=== PATIENT | female | born 1995 | race American Indian/Alaskan Native ===

== ENCOUNTER 2016-11-08 04:00 | Emergency (ER) | payer MEDICAID ==
[2016-11-08 04:30] LABS: Basophils % (Auto) 0.9 % (0.0-1.8); Eosinophils % (Auto) 1.5 % (0.0-4.3); Hematocrit 30.7 % (30.3-42.9); Hemoglobin 10.4 gm/dl (10.1-14.3); Mean Corpuscular HGB Conc 34 % (30-34); Mean Corpuscular Volume 76 fl (79-97); Platelet Count 321 K/mm3 (140-440); Red Blood Count 4.05 M/mm3 (3.65-5.03); Red Cell Distribution Width 15.9 % (13.2-15.2); White Blood Count 10.8 K/mm3 (4.5-11.0)
[2016-11-08 04:46] LABS: Urine Drugs of Abuse Note Disclamer
[2016-11-08 04:48] LABS: Alanine Aminotransferase 20 units/L (7-56); Albumin 3.9 g/dL (3.9-5); Alkaline Phosphatase 57 units/L (35-129); Anion Gap 18 mmol/L; BUN/Creatinine Ratio 13.33; Blood Urea Nitrogen 8 mg/dL (7-17); Carbon Dioxide 22 mmol/L (22-30); Chloride 100.8 mmol/L (98-107); Glucose 103 mg/dL (65-100); Mean Corpuscular Hemoglobin 26 pg (28-32); Sodium 137 mmol/L (137-145); Total Protein 7.7 g/dL (6.3-8.2)
[2016-11-08 04:58] LABS: Bacteria,Urine 1+ /HPF (Negative); Bilirubin,Urine NEG (Negative); Blood,Urine NEG (Negative); Ketones,Urine NEG (Negative); Leukocyte Esterase,Urine SM (Negative); Nitrite,Urine NEG (Negative); Protein,Urine <15 mg/dL mg/dL (Negative); Urobilinogen,Urine < 2.0 mg/dL (<2.0)
--- NOTE | 2016-11-08 07:17 | Emergency Department Report ---
ED General Adult HPI - General Chief complaint: Altered Mental Status Stated complaint: AMS Time Seen by Provider: 11/08/16 07:15 Source: patient Mode of arrival: Stretcher Limitations: No Limitations - History of Present Illness Initial comments: According to triage the patient states that she was found on a floor at her workplace. She works in a hot environment. She tells me that she fainted. She feels back to normal now and states he is ready for discharge. She states that she did not have any prodromal symptoms although she's had a "slight headache" over the last 24 hours which is now resolved. She denies any focal neurological symptoms. She has no history of seizure. She states that she recalls the ambulance ride over here. On my encounter she was resting comfortably and easily arousable. -: unknown Improves with: none Worsens with: none Associated Symptoms: denies other symptoms (except as above indicated) - Related Data Home Medications Medication Instructions Recorded Confirmed Last Taken No Known Home Medications [No 11/08/16 11/08/16 Unknown Reported Home Medications] Allergies Allergy/AdvReac Type Severity Reaction Status Date / Time No Known Allergies Allergy Unverified 11/08/16 04:11 ED Review of Systems ROS: Stated complaint: AMS Other details as noted in HPI Constitutional: denies: chills, fever Eyes: denies: eye pain, eye discharge, vision change ENT: denies: ear pain, throat pain Respiratory: denies: cough, shortness of breath, wheezing Cardiovascular: denies: chest pain, palpitations Endocrine: no symptoms reported Gastrointestinal: denies: abdominal pain, nausea, diarrhea Genitourinary: denies: urgency, dysuria, discharge Musculoskeletal: denies: back pain, joint swelling, arthralgia Skin: denies: rash, lesions Neurological: headache ("slight headache" which has resolved). denies: weakness , paresthesias Psychiatric: denies: anxiety, depression Hematological/Lymphatic: denies: easy bleeding, easy bruising ED Past Medical Hx - Past Medical History Previous Medical History?: No - Surgical History Past Surgical History?: Yes Additional Surgical History: c-sec - Social History Smoking Status: Never Smoker Substance Use Type: None - Medications Home Medications: Home Medications Medication Instructions Recorded Confirmed Last Taken Type No Known Home Medications [No 11/08/16 11/08/16 Unknown History Reported Home Medications] ED Physical Exam - General Limitations: No Limitations General appearance: alert, in no apparent distress - Head Head exam: Present: atraumatic, normocephalic - Eye Eye exam: Present: normal appearance, PERRL, EOMI. Absent: scleral icterus - ENT ENT exam: Present: mucous membranes moist - Neck Neck exam: Present: normal inspection. Absent: tenderness, meningismus - Respiratory Respiratory exam: Present: normal lung sounds bilaterally. Absent: respiratory distress - Cardiovascular Cardiovascular Exam: Present: regular rate, normal rhythm. Absent: systolic murmur, diastolic murmur, rubs, gallop - GI/Abdominal GI/Abdominal exam: Present: soft, normal bowel sounds. Absent: distended, tenderness, guarding, rebound, rigid - Extremities Exam Extremities exam: Present: normal inspection - Back Exam Back exam: Present: normal inspection - Neurological Exam Neurological exam: Present: alert, oriented X3, CN II-XII intact, normal gait, other (cerebellar testing was normal). Absent: motor sensory deficit - Psychiatric Psychiatric exam: Present: normal affect, normal mood - Skin Skin exam: Present: warm, dry, intact, normal color. Absent: rash ED Course Vital Signs 11/08/16 11/08/16 04:13 07:20 Temperature 99.1 F 98.3 F Pulse Rate 80 79 Respiratory 18 15 Rate Blood Pressure 124/72 Blood Pressure 106/58 [Left] O2 Sat by Pulse 100 100 Oximetry ED Medical Decision Making - Lab Data Result diagrams: 11/08/16 04:22 11/08/16 04:22 Laboratory Results - last 24 hr 11/08/16 11/08/16 11/08/16 04:22 04:22 04:30 WBC 10.8 RBC 4.05 Hgb 10.4 Hct 30.7 MCV 76 L MCH 26 L MCHC 34 RDW 15.9 H Plt Count 321 Lymph % (Auto) 23.5 Bertie % (Auto) 7.0 Eos % (Auto) 1.5 Baso % (Auto) 0.9 Lymph # 2.5 Bertie # 0.8 Eos # 0.2 Baso # 0.1 Seg Neutrophils % 67.1 Seg Neutrophils # 7.2 Sodium 137 Potassium 4.0 Chloride 100.8 Carbon Dioxide 22 Anion Gap 18 BUN 8 Creatinine 0.6 L Estimated GFR > 60 BUN/Creatinine Ratio 13.33 Glucose 103 H Calcium 9.0 Total Bilirubin 0.40 AST 24 ALT 20 Alkaline Phosphatase 57 Total Protein 7.7 Albumin 3.9 Albumin/Globulin Ratio 1.0 Urine Color Yellow Urine Turbidity Clear Urine pH 6.0 Ur Specific Sawyer 1.013 Urine Protein <15 mg/dl Urine Glucose (UA) Neg Urine Ketones Neg Urine Blood Neg Urine Nitrite Neg Urine Bilirubin Neg Urine Urobilinogen < 2.0 Ur Leukocyte Esterase Sm Urine WBC (Auto) 4.0 Urine RBC (Auto) 3.0 U Epithel Cells (Auto) 8.0 Urine Bacteria (Auto) 1+ Urine HCG, Qual Negative Urine Opiates Screen Urine Methadone Screen Ur Barbiturates Screen Ur Phencyclidine Scrn Ur Amphetamines Screen U Benzodiazepines Scrn Urine Cocaine Screen U Marijuana (THC) Screen Drugs of Abuse Note 11/08/16 04:30 WBC RBC Hgb Hct MCV MCH MCHC RDW Plt Count Lymph % (Auto) Bertie % (Auto) Eos % (Auto) Baso % (Auto) Lymph # Bertie # Eos # Baso # Seg Neutrophils % Seg Neutrophils # Sodium Potassium Chloride Carbon Dioxide Anion Gap BUN Creatinine Estimated GFR BUN/Creatinine Ratio Glucose Calcium Total Bilirubin AST ALT Alkaline Phosphatase Total Protein Albumin Albumin/Globulin Ratio Urine Color Urine Turbidity Urine pH Ur Specific Sawyer Urine Protein Urine Glucose (UA) Urine Ketones Urine Blood Urine Nitrite Urine Bilirubin Urine Urobilinogen Ur Leukocyte Esterase Urine WBC (Auto) Urine RBC (Auto) U Epithel Cells (Auto) Urine Bacteria (Auto) Urine HCG, Qual Urine Opiates Screen Presumptive negative Urine Methadone Screen Presumptive negative Ur Barbiturates Screen Presumptive negative Ur Phencyclidine Scrn Presumptive negative Ur Amphetamines Screen Presumptive negative U Benzodiazepines Scrn Presumptive negative Urine Cocaine Screen Presumptive negative U Marijuana (THC) Screen Presumptive negative Drugs of Abuse Note Disclamer - EKG Data EKG shows normal: sinus rhythm, axis, intervals, QRS complexes, ST-T waves Rate: normal - EKG Data Interpretation: other (QTC is 461 which is slightly prolonged but not clinically significant) - Medical Decision Making I do not feel I can justify the radiation exposure involvement CT testing at this point. The patient is asymptomatic. It would appear that she had a vasovagal event. Critical care attestation.: If time is entered above; I have spent that time in minutes in the direct care of this critically ill patient, excluding procedure time. ED Disposition Clinical Impression: Vasovagal syncope Disposition: DC-01 TO HOME OR SELFCARE Is pt being admited?: No Does the pt Need Aspirin: No Condition: Stable Instructions: Syncope (ED) Additional Instructions: Stay well-hydrated. Follow-up with her primary care provider. Return to the emergency department any significant headache acute change or symptom. Referrals: PRIMARY CARE, [Primary Care Provider] - 24 Hours Time of Disposition: 07:54
[2016-11-08 08:25] VITALS: BP 117/82
== END 2016-11-08 08:24 | disposition home or self-care (01) ==
LOC: ED 04:00
DX: R55 Syncope and collapse (principal)
CPT/HCPCS: 36415; 80053; 80307; 81001; 81025; 85025; 93005; 93010; 99284

== ENCOUNTER 2017-10-01 07:43 | Emergency (ER) | payer MEDICAID ==
[2017-10-01 08:20] VITALS: BP 124/80
[2017-10-01 09:05] LABS: Hematocrit 35.7 % (30.3-42.9); Hemoglobin 11.9 gm/dl (10.1-14.3); Mean Corpuscular HGB Conc 33 % (30-34); Mean Corpuscular Hemoglobin 26 pg (28-32); Mean Corpuscular Volume 79 fl (79-97); Platelet Count 340 K/mm3 (140-440); Red Blood Count 4.55 M/mm3 (3.65-5.03); Red Cell Distribution Width 16.6 % (13.2-15.2)
[2017-10-01 09:20] LABS: BUN/Creatinine Ratio 16; Blood Urea Nitrogen 8 mg/dL (7-17); Calcium 9.4 mg/dL (8.4-10.2); Hemolysis Index 1
--- NOTE | 2017-10-01 11:11 | Emergency Department Report ---
ED Syncope HPI - General Chief Complaint: Syncope Stated Complaint: SYNCOPE Time Seen by Provider: 10/01/17 10:49 Source: patient Exam Limitations: no limitations - History of Present Illness Initial Comments: 22-year-old female with no significant past medical history presents to the hospital pending of syncopal episode while working. Patient works in a [employer]. She states it was hot and humid and she was carrying a box when she felt lightheaded and then passed out. She denies headache, chest pain , shortness of breath, abdominal pain, nausea, vomiting, diarrhea, vaginal bleeding, or dysuria. She did not have anything to eat or drink prior to going to work and was at work for 1 hour prior to syncopal episode. Today weather is 80+ with high humidity. Patient states she is back to normal and is asymptomatic. - Related Data Allergies/Adverse Reactions: Allergies No Known Allergies Allergy (Unverified 11/08/16 04:11) Home Medications: Ambulatory Orders No Known Home Medications [No Reported Home Medications] 11/08/16 ED Review of Systems ROS: Stated complaint: SYNCOPE Other details as noted in HPI Comment: All other systems reviewed and negative ED Past Medical Hx - Past Medical History Previous Medical History?: No - Surgical History Past Surgical History?: No Additional Surgical History: c-sec - Social History Smoking Status: Never Smoker Substance Use Type: None - Medications Home Medications: Home Medications Medication Instructions Recorded Confirmed Last Taken Type No Known Home Medications [No 11/08/16 11/08/16 Unknown History Reported Home Medications] ED Physical Exam - General Limitations: No Limitations - Other Other exam information: General: No limitations, patient is alert in no acute distress Head exam: Atraumatic, normocephalic Eyes exam: Normal appearance ENT: Moist mucous membrane Neck exam: Normal inspection, full range of motion Respiratory exam: Clear to auscultation bilateral, no wheezes, rales, crackles Cardiovascular: Normal rate and rhythm, normal heart sounds Abdomen: Soft, nondistended, and nontender, with normal bowel sounds, no rebound, or guarding Extremity: Full range of motion normal inspection no deformity Back: Normal Inspection, full range of motion, no tenderness Neurologic: Alert, oriented x3, cranial nerves intact, no motor or sensory deficit Psychiatric: normal affect, normal mood Skin: Warm, dry, intact ED Course Vital Signs 10/01/17 10/01/17 08:17 10:18 Temperature 98.2 F Pulse Rate 63 Respiratory 16 18 Rate Blood Pressure 124/80 O2 Sat by Pulse 100 Oximetry ED Medical Decision Making - Lab Data Result diagrams: 10/01/17 08:40 10/01/17 08:40 Lab Results 10/01/17 10/01/17 10/01/17 Range/Units 08:40 08:40 08:40 WBC 10.7 (4.5-11.0) K/mm3 RBC 4.55 (3.65-5.03) M/mm3 Hgb 11.9 (10.1-14.3) gm/dl Hct 35.7 (30.3-42.9) % MCV 79 (79-97) fl MCH 26 L (28-32) pg MCHC 33 (30-34) % RDW 16.6 H (13.2-15.2) % Plt Count 340 (140-440) K/mm3 Sodium 138 (137-145) mmol/L Potassium 4.0 (3.6-5.0) mmol/L Chloride 101.4 (98-107) mmol/L Carbon Dioxide 24 (22-30) mmol/L Anion Gap 17 mmol/L BUN 8 (7-17) mg/dL Creatinine 0.5 L (0.7-1.2) mg/dL Estimated GFR > 60 ml/min BUN/Creatinine Ratio 16 % Glucose 113 H (65-100) mg/dL Calcium 9.4 (8.4-10.2) mg/dL HCG, Qual Negative (Negative) - EKG Data -: EKG Interpreted by [facility] EKG shows normal: sinus rhythm, axis (qrs 40), QRS complexes (qrsd 74), ST-T waves (no stemi/ t inv) Rate: normal (60) - EKG Data When compared to previous EKG there are: no significant change - Medical Decision Making Syncope likely secondary to environmental factors and lack of fluid intake. Orthostatics negative. Patient encouraged to rest and drink plenty of fluids and will be discharged - Differential Diagnosis vasovagal, heat exhaustion, anemia, arrhythmia Critical Care Time: No Critical care attestation.: If time is entered above; I have spent that time in minutes in the direct care of this critically ill patient, excluding procedure time. ED Disposition Clinical Impression: Syncope, Heat effect Disposition: DC-01 TO HOME OR SELFCARE Is pt being admited?: No Does the pt Need Aspirin: No Condition: Stable Instructions: Syncope (ED), Heat Exhaustion (ED) Additional Instructions: Avoid heat and have any exposure today. Drink plenty of fluids Referrals: PRIMARY CARE,MD [Primary Care Provider] - 3-5 Days Forms: Work/School Release Form(ED) Time of Disposition: 11:11
== END 2017-10-01 11:25 | disposition home or self-care (01) ==
LOC: ED 07:43
DX: T67.9XXA Effect of heat and light, unspecified, initial encounter (principal); R55 Syncope and collapse; X58.XXXA Exposure to other specified factors, initial encounter; Y93.89 Activity, other specified; Y92.89 Other specified places as the place of occurrence of the external cause; Y99.8 Other external cause status
CPT/HCPCS: 36415; 80048; 84703; 85027; 93005; 93010; 99283

== ENCOUNTER 2019-01-25 20:01 | Emergency (ER) | payer OTHER ==
[2019-01-25 20:17] VITALS: BP 139/72
[2019-01-25 21:05] LABS: Basophils # (Auto) 0.1 K/mm3 (0.0-0.1); Basophils % (Auto) 0.6 % (0.0-1.8); Eosinophils # (Auto) 0.1 K/mm3 (0.0-0.4); Eosinophils % (Auto) 0.9 % (0.0-4.3); Hematocrit 36.1 % (30.3-42.9); Hemoglobin 12.1 gm/dl (10.1-14.3); Lymphocytes % (Auto) 17.5 % (13.4-35.0); Mean Corpuscular HGB Conc 33 % (30-34); Mean Corpuscular Volume 79 fl (79-97); Monocytes # (Auto) 0.6 K/mm3 (0.0-0.8); Monocytes % (Auto) 5.6 % (0.0-7.3); Platelet Count 338 K/mm3 (140-440); Red Blood Count 4.54 M/mm3 (3.65-5.03)
[2019-01-25] MEDS ORDERED: ONDANSETRON 4 MG/2 ML INJ IV ONE (21:15)
--- NOTE | 2019-01-25 22:00 | Emergency Department Report ---
ED Abdominal Pain HPI - General Chief Complaint: Abdominal Pain Stated Complaint: ABD PAIN, HEADACHE, SPOTTING, NAUSEA, DIZZINESS Source: patient Mode of arrival: Ambulatory Limitations: No Limitations - History of Present Illness Initial Comments: Patient is a A0 23-year-old -[place] female with no past medical history presents to the ED with complaint of acute onset persistent severe right lower quadrant abdominal pain as well as epigastric pain with nausea and vomiting and headache for the last 3 days. Patient states that her symptoms worsened in the last 12 hours. Patient denies dysuria, urinary frequency and urgency, constipation, vaginal bleeding, vaginal discharge, dyspareunia, no back pain, dizziness, headache, fever, chills, diarrhea, chest pain, shortness of breath or syncope. MD Complaint: abdominal pain, other (Nausea and vomiting, headache) -: Sudden, days(s) (3) Location: RLQ, epigastric Radiation: RLQ, suprapubic Migration to: no migration Severity scale (0 -10): 10 Quality: aching, sharp Consistency: constant Improves With: nothing Worsens With: vomiting Associated Symptoms: nausea, vomiting, anorexia. denies: diarrhea, fever, chills, constipation, dysuria, hematemesis, hematochezia, melena, hematuria, syncope Treatments Prior to Arrival: NSAIDs - Related Data LMP Date: 12/19/18 LMP (females 10-50): 1 month Home Medications Medication Instructions Recorded Confirmed Last Taken No Known Home Medications [No 11/08/16 11/08/16 Unknown Reported Home Medications] Allergies Allergy/AdvReac Type Severity Reaction Status Date / Time No Known Allergies Allergy Unverified 11/08/16 04:11 ED Review of Systems ROS: Stated complaint: ABD PAIN, HEADACHE, SPOTTING, NAUSEA, DIZZINESS Other details as noted in HPI Constitutional: denies: chills, fever Eyes: denies: eye pain, eye discharge, vision change ENT: denies: ear pain, throat pain Respiratory: denies: cough, shortness of breath, wheezing Cardiovascular: denies: chest pain, palpitations Endocrine: no symptoms reported Gastrointestinal: abdominal pain, nausea, vomiting. denies: diarrhea, constipation Genitourinary: denies: urgency, dysuria, frequency, hematuria, discharge Musculoskeletal: denies: back pain, joint swelling, arthralgia Skin: denies: rash, lesions Neurological: headache. denies: weakness, paresthesias Psychiatric: denies: anxiety, depression Hematological/Lymphatic: denies: easy bleeding, easy bruising ED Past Medical Hx - Past Medical History Previous Medical History?: No Additional medical history: Obesity. - Surgical History Past Surgical History?: Yes Additional Surgical History: c-sec - Social History Smoking Status: Never Smoker - Medications Home Medications: Home Medications Medication Instructions Recorded Confirmed Last Taken Type No Known Home Medications [No 11/08/16 11/08/16 Unknown History Reported Home Medications] ED Physical Exam - General Limitations: No Limitations General appearance: alert, in no apparent distress - Head Head exam: Present: atraumatic, normocephalic, normal inspection - Eye Eye exam: Present: normal appearance, PERRL, EOMI Pupils: Present: normal accommodation - ENT ENT exam: Present: normal exam, normal orophraynx, mucous membranes moist, TM's normal bilaterally, normal external ear exam - Neck Neck exam: Present: normal inspection, full ROM - Respiratory Respiratory exam: Present: normal lung sounds bilaterally. Absent: respiratory distress, wheezes, rales, stridor, chest wall tenderness, accessory muscle use, decreased breath sounds, prolonged expiratory - Cardiovascular Cardiovascular Exam: Present: regular rate, normal rhythm, normal heart sounds. Absent: systolic murmur, diastolic murmur, rubs, gallop - GI/Abdominal GI/Abdominal exam: Present: soft, tenderness (RLQ, Epigastric and suprapubic), normal bowel sounds. Absent: guarding, rebound, hyperactive bowel sounds, hypoactive bowel sounds, organomegaly - Extremities Exam Extremities exam: Present: normal inspection, full ROM, normal capillary refill - Back Exam Back exam: Present: normal inspection, full ROM. Absent: tenderness, CVA tenderness (R), CVA tenderness (L), muscle spasm, paraspinal tenderness, vertebral tenderness - Neurological Exam Neurological exam: Present: alert, oriented X3, CN II-XII intact, normal gait, reflexes normal - Psychiatric Psychiatric exam: Present: normal affect, normal mood - Skin Skin exam: Present: warm, dry, intact, normal color. Absent: rash ED Course Vital Signs 01/25/19 01/25/19 20:11 20:23 Temperature 98.4 F 98.4 F Pulse Rate 92 H 85 Respiratory 18 18 Rate Blood Pressure 139/72 139/72 O2 Sat by Pulse 99 99 Oximetry ED Medical Decision Making - Lab Data Result diagrams: 01/25/19 20:36 01/25/19 20:36 - Medical Decision Making This is a 23-year-old female who presented to the ED with acute onset persistent nausea and vomiting, right lower quadrant abdominal pain and epigastric pain w ith a headache for the last 3 days, worse in the last 12 months. In the ED, patient is alert and oriented 3 with normal vital signs and doesn't appear to be in any distress. Labs were drawn and medications were ordered for the patient. Patient however stated that patient has resolved after she took ibuprofen prior to arrival in the ED. Patient was treated for nausea in the ED. Patient however declined any other tests including abdomen and pelvis CT scan with contrast because of female pain inflicted with needles. Patient therefore opted to sign out AMA without having abdomen pelvis CT scan in the ED. - Differential Diagnosis Appendicitis; acute UTI; Ovarian cysts; GERD; Kidney stones Critical care attestation.: If time is entered above; I have spent that time in minutes in the direct care of this critically ill patient, excluding procedure time. ED Disposition Clinical Impression: Nausea and vomiting in adult Abdominal pain Qualifiers: Abdominal location: right lower quadrant Qualified Code(s): R10.31 - Right lower quadrant pain Disposition: DC-07 LEFT AGAINST MED ADVICE Is pt being admited?: No Does the pt Need Aspirin: No Condition: Stable Instructions: Acute Nausea and Vomiting (ED), Abdominal Pain (ED) Referrals: MARIA T PHAM MD [Primary Care Provider] - 3-5 Days Forms: AMA Form Time of Disposition: 22:01 Print Language: POLISH
[2019-01-25 22:04] LABS: Alanine Aminotransferase 22 units/L (7-56); Albumin 4.3 g/dL (3.9-5); BUN/Creatinine Ratio 13; Blood Urea Nitrogen 10 mg/dL (7-17); Calcium 9.1 mg/dL (8.4-10.2); Hemolysis Index 7
== END 2019-01-25 22:07 | disposition left against medical advice (07) ==
LOC: ED 20:01
DX: R10.31 Right lower quadrant pain (principal); R10.13 Epigastric pain; R11.2 Nausea with vomiting, unspecified; R51 Headache; E66.9 Obesity, unspecified
CPT/HCPCS: 36415; 80053; 83690; 84703; 85025; 99283; J2405

== ENCOUNTER 2019-05-04 21:39 | Emergency (ER) | payer OTHER ==
[2019-05-04 21:48] VITALS: BP 140/91
--- NOTE | 2019-05-05 00:20 | Emergency Department Report ---
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 Patient reports while at work she ate a red velvet cake which is made of nuts and chocolate. Patient states that at that time she started to have shortness of breath itching with hives. Patient states she took 25 mg of Benadryl about 15 minutes prior to arrival. Patient stated has helped no hives are noted in triage patient states the itchiness has lessened but still there. Patient denies any shortness of breath at this time. Patient reports that the rash has improved. Patient states that she knows she is allergic to a but she craves it associated. Patient states Medicaid will pay for her visit. - Exam Vital Signs: Vital Signs 05/04/19 05/04/19 21:43 21:48 Temperature 98.7 F Pulse Rate 62 Respiratory 18 16 Rate Blood Pressure 140/91 O2 Sat by Pulse 100 Oximetry Physical Exam: Alert and oriented no acute distress Chest clear to auscultation bilateral Cardiac regular rate and rhythm Skin no urticaria or rash appreciated. MSE screening note: Focused history and physical exam performed. Due to findings the following was ordered: 23-year-old morbid obese female presents to the emergency room reporting she is allergic to chocolate and nuts. Patient reports while at work she ate a red velvet cake which is made of nuts and chocolate. Patient states that at that time she started to have shortness of breath itching with hives. Patient states she took 25 mg of Benadryl about 15 minutes prior to arrival. Patient stated has helped no hives are noted in triage patient states the itchiness has lessened but still there. Patient denies any shortness of breath at this time. Patient reports that the rash has improved. Patient states that she knows she is allergic to a but she craves it associated. Patient states Medicaid will pay for her visit. Patient needs to not eat chocolate and nuts just because she craves it and feels that Medicaid is going to continue to pay for her ER visits. I discussed the patient that every time she introduces herself to a allergen the next reaction could get worse to the point of she can . ED Disposition for MSE Clinical Impression: Allergic reaction, Severely overweight Disposition: Z-07 MED SCREENING EXAM-LEFT Is pt being admited?: No Does the pt Need Aspirin: No Condition: Stable Instructions: Obesity (ED), Food Allergy (ED) Additional Instructions: Every time she introduces herself to a allergen the next reaction could get worse to the point of she can . Referrals: DIEGO ARMENDARIZ JR, MD [Staff Physician] - 3-5 Days
== END 2019-05-05 00:40 | disposition left against medical advice (07) ==
LOC: ED 21:39
DX: T78.1XXA Other adverse food reactions, not elsewhere classified, initial encounter (principal); E66.3 Overweight; Z68.42 Body mass index [BMI] 45.0-49.9, adult; Z91.018 Allergy to other foods; X58.XXXA Exposure to other specified factors, initial encounter; Y93.89 Activity, other specified; Y92.89 Other specified places as the place of occurrence of the external cause; Y99.8 Other external cause status

== ENCOUNTER 2020-06-30 22:05 | Emergency (ER) | payer OTHER | END 2020-07-01 00:54 | disposition left against medical advice (07) | LOC: ED 22:05 | DX: R55 Syncope and collapse (principal); Z53.21 Procedure and treatment not carried out due to patient leaving prior to being seen by health care provider ==